=== PATIENT | male | born 1990 | race Caucasian/White ===

== ENCOUNTER 2017-08-15 21:51 | Emergency (ER) | payer OTHER ==
[2017-08-15 22:02] VITALS: BP 172/81; PULSE 94; RESP 18; TEMP 98.2; O2SAT 99
[2017-08-15] MEDS ORDERED: CYCL5TAB PO (22:38)
[2017-08-15] MEDS ORDERED: GABA300C5 PO (22:38)
[2017-08-15] MEDS ORDERED: DICL75TA PO (22:38)
--- NOTE | 2017-08-15 22:43 | PD ---
HPI Chief Complaint: Pain: Acute or Chronic Time Seen by Provider: 22:26 Travel History International Travel<30 days: No Contact w/Intl Traveler<30days: No Traveled to known affect area: No History of Present Illness HPI This is a 27-year-old male who presents for evaluation of chronic left hip pain. He reports that he injured his left hip in 2011 while in the . He does not know specifically what he was diagnosed with but he has chronic left hip pain resulting. He is prescribed oxycodone, Flexeril and gabapentin by his physician in [place]. He reports that he recently traveled from [place] to [facility] in order to a 10 day jeep festival. He reports that he forgot his medication in [place]. Tonight he had a sharp pain in his left hip while walking. He denies any injury. He denies any acute weakness or numbness or tingling. He denies any abdominal pain. He has no other complaints. [facility] Past Medical History Medical History: Denies Significant Hx Diminished Hearing: No Immunizations Current: Yes Tetanus Vaccination: < 5 Years Social History Alcohol Use: Yes (Socially) Tobacco Use: No Substance Use: No Allergies-Medications (Allergen,Severity, Reaction): Coded Allergies: No Known Allergies (Unverified , 08/15/17) Reported Meds & Prescriptions Reported Meds & Active Scripts Active Diclofenac Sodium DR (Diclofenac Sodium) 75 Mg Tabdr 75 Mg PO BID 5 Days Flexeril (Cyclobenzaprine HCl) 5 Mg Tab 5 Mg PO TID 5 Days Gabapentin 300 Mg Cap 300 Mg PO TID 5 Days Review of Systems General / Constitutional: No: Fever, Chills Gastrointestinal: No: Nausea, Vomiting, Abdominal Pain Genitourinary: No: Dysuria, Flank Pain Musculoskeletal: Positive: Pain Skin: No Rash Physical Exam Narrative GENERAL: Well-developed well-nourished male in no acute distress SKIN: Warm and dry. No open wounds. CARDIOVASCULAR: Regular rate and rhythm. No murmur appreciated. RESPIRATORY: No accessory muscle use. Clear to auscultation. Breath sounds equal bilaterally. GASTROINTESTINAL: Abdomen soft, non-tender, nondistended. Hepatic and splenic margins not palpable. MUSCULOSKELETAL: No obvious deformities. Tender to palpation left hip. The patient appears to have pain with internal/external rotation, flexion and extension of left hip. There is no lower extremity edema. 2+ dorsalis pedis pulse bilaterally. NEUROLOGICAL: Awake and alert. No obvious cranial nerve deficits. Motor grossly within normal limits. Normal speech. Data Data Last Documented VS Vital Signs Date Time Temp Pulse Resp B/P (MAP) Pulse Ox O2 Delivery O2 Flow Rate FiO2 08/15/17 22:02 98.2 94 18 172/81 (111) 99 Orders Orders Ketorolac Inj (Toradol Inj) (08/15/17 22:45) MDM Medical Decision Making Medical Screen Exam Complete: Yes Emergency Medical Condition: Yes Medical Record Reviewed: Yes Differential Diagnosis Medication refill, chronic left hip pain, osteoarthritis, septic arthritis Narrative Course The patient will be given a refill of his gabapentin and Flexeril. He will be given diclofenac for pain. Recommended follow-up with his primary care physician for refill of narcotic pain medication. Diagnosis Primary Impression: Chronic left hip pain Additional Instructions: Medication as needed. Do not drive, drink alcohol and taking gabapentin or Flexeril as they may cause sedation. Take diclofenac with meals. Follow-up with primary care physician. Return for any emergent medical conditions. Med/Other Pt SpecificInfo: Prescription(s) given Scripts Diclofenac Sodium DR (Diclofenac Sodium DR) 75 Mg Tabdr 75 MG PO BID for 5 Days, #10 TAB 0 Refills Prov: Deshaun Louis MD 08/15/17 Cyclobenzaprine (Flexeril) 5 Mg Tab 5 MG PO TID for Muscle Spasm for 5 Days, #90 TAB 0 Refills Prov: Deshaun Louis MD 08/15/17 Gabapentin (Gabapentin) 300 Mg Cap 300 MG PO TID for 5 Days, #90 CAP 0 Refills Prov: Deshaun Louis MD 08/15/17 Disposition: 01 DISCHARGE HOME Condition: Stable Jose G Johnson Aug 15, 2017 22:43
[2017-08-15] MEDS ORDERED: KETOROLAC TROMETHAMINE 60 MG/2 ML (IM) VIAL IM ONE (22:45)
== END 2017-08-15 23:32 | disposition home or self-care (01) ==
LOC: NEPD 21:51
DX: M25.552 Pain in left hip (principal); G89.29 Other chronic pain
CPT/HCPCS: 96372; 99283; J1885